=== PATIENT | female | born 1990 | race Caucasian/White ===

== ENCOUNTER 2021-02-27 20:53 | Inpatient (IN) ==
[2021-02-27] MEDS ORDERED: MEPERIDINE 50 MG/1 ML VIAL IV PRN (21:05)
[2021-02-27] MEDS ORDERED: ONDANSETRON 4 MG/2 ML VIAL IV PRN (21:05)
[2021-02-27] MEDS ORDERED: BUTORPHANOL 2 MG/ML VIAL IV PRN (21:05)
[2021-02-27 21:38] LABS: Basophils % 0.4 % (0.0-0.8); Eosinophils % 0.5 % (0.00-10.9); Hematocrit 35.9 VOL% (35.7-47.0); Hemoglobin 12.3 GM/DL (12.0-16.0); Immature Granulocytes % 0.8 %; Immature Granulocytes Absolute 0.07 #; Lymphocytes # 2.1 10*3/uL (1.4-4.0); Lymphocytes % 24.8 % (21.3-54.2); Mean Corpuscular HGB Conc 34.3 GM/DL (32-36); Mean Corpuscular Volume 91.6 FL (87-102); Monocytes % 7.7 % (1.7-12.7); Neutrophils % 65.8 % (38.7-73.9); Platelet Count 165 T/CUMM (130-400); Red Blood Count 3.92 MC/CUMM (3.8-5.5); Red Cell Distribution Width 13.1 % (9.3-17.3); White Blood Count 8.3 T/CUMM (4-12)
[2021-02-27 22:00] LABS: Alanine Aminotransferase 43 U/L (13-56); Albumin 2.8 G/DL (3.4-5.0); Alkaline Phosphatase 182 U/L (45-117); Aspartate Amino Transferase 32 U/L (0-37); Bilirubin,Total < 0.39 MG/DL (0.20-1.00); Blood Urea Nitrogen 10 MG/DL (7-18); Calcium 8.6 MG/DL (8.5-10.1); Carbon Dioxide 20 MMOL/L (21-32); Estimated Glom Filtration Rate 134 ML/MIN; Glucose 91 MG/DL (74-106); Osmolality,Calculated 271.8 MOS/KG (273-304); Potassium 3.3 MMOL/L (3.5-5.1); Sodium 137 MMOL/L (136-145); Total Protein 6.2 G/DL (6.4-8.2)
[2021-02-27] MEDS: ALUMINUM/MAGNES/SIMETH MAX STR 30 ML UDCUP PO PRN (22:54)
[2021-02-28] MEDS: LACTATED RINGERS 1,000 ML IV SCH ×4 (04:43→10:14)
[2021-02-28] MEDS ORDERED: AMPICILLIN INJ 2,000 MG in SODIUM CHLORIDE 0.9% 100 ML IV SCH (06:00)
[2021-02-28] MEDS ORDERED: NALOXONE 0.4 MG/ML VIAL IV PRN (07:15)
[2021-02-28] MEDS ORDERED: CITRIC ACID/SODIUM CITRATE 30 ML UDCUP PO ONE (07:15)
[2021-02-28] MEDS ORDERED: LACTATED RINGERS 1,000 ML IV ONE (07:15)
[2021-02-28] MEDS ORDERED: diphenhydrAMINE 50 MG/1 ML VIAL IV PRN ×2 (07:15)
[2021-02-28] MEDS ORDERED: ePHEDrine 50 MG/ML VIAL IV PRN (07:15)
[2021-02-28] MEDS ORDERED: FAMOTIDINE 20 MG/2 ML VIAL IV ONE (07:15)
[2021-02-28] MEDS ORDERED: OXYTOCIN/LR 20 UNIT/1,000 ML BAG IV SCH (07:30)
[2021-02-28] MEDS ORDERED: LACTATED RINGERS 1,000 ML IV SCH (07:30)
[2021-02-28] MEDS ORDERED: fentaNYL 2 MCG/ROPIV 0.2% EPID 100 ML EPIDURAL SCH (07:30)
[2021-02-28] MEDS ORDERED: miSOPROStoL 200 MCG TABLET ONE (11:27)
[2021-02-28] MEDS ORDERED: TRANEXAMIC ACID 1,000 MG/10 ML VIAL ONE (11:27)
[2021-02-28] MEDS ORDERED: METHYLERGONOVINE 0.2 MG/1 ML AMP ONE (11:28)
[2021-02-28] MEDS ORDERED: SODIUM CHLORIDE 0.9% 0 ML IV ONE (11:28)
[2021-02-28] MEDS ORDERED: CARBOPROST TROMETHAMINE 250 MCG/ML AMP IM ONE (11:28)
[2021-02-28 11:31] LABS: Bilirubin,Urine Negative (Negative); Blood, Urine Negative (Negative); Glucose,Urine (UA) Negative (Negative); Ketones,Urine 80 mg/dL (Negative); Mucus,Urine Few /LPF (Occasional); Nitrite,Urine Negative (Negative); Protein,Urine Negative; RBC,Urine 1 /HPF (0-4); Squamous Epithelial Cell,Urine Occasional /HPF (0-10); Urine Appearance CLEAR (Clear); Urine Color Yellow (Yellow); Urine Specific Gravity 1.019 (1.001-1.035); Urine Urobilinogen < 2.0 EU/DL (<2.0)
[2021-02-28 12:21] LABS: Cord Arterial Blood HCO3 20.1 MMOL/L
[2021-02-28 12:22] LABS: Cord Venous Blood HCO3 20.6 MMOL/L; Cord Venous Blood PCO2 36.7 MMHG; Cord Venous Blood PO2 26.9 MMHG
[2021-02-28] MEDS ORDERED: ONDANSETRON 4 MG/2 ML VIAL IV PRN (16:09)
[2021-02-28] MEDS ORDERED: oxyCODONE/ACETAMINOPHEN 5-325 MG TABLET PO PRN (16:09)
[2021-02-28] MEDS ORDERED: OXYTOCIN/LR 20 UNIT/1,000 ML BAG IV ONE (16:09)
[2021-02-28] MEDS ORDERED: WITCH HAZEL PADS 100/JAR TOP PRN (16:09)
[2021-02-28] MEDS ORDERED: LANOLIN 50% CREAM 0.3 OZ TUBE TOP PRN (16:09)
[2021-02-28] MEDS ORDERED: RHO(D) IMMUNE GLOBULIN 300 MCG SYRINGE IM ONE (16:09)
[2021-02-28] MEDS ORDERED: DIPH/TET/ACEL PERT BOOSTER VACCINE 0.5 ML VIAL IM ONE (16:09)
[2021-02-28] MEDS ORDERED: HYDROCORTISONE 2.5% RECTAL CREAM 30 GM TUBE TOP PRN (16:09)
[2021-02-28] MEDS ORDERED: MEASLES/MUMPS/RUBELLA VACCINE 0.5 ML VIAL SUBCUT ONE (16:09)
[2021-02-28] MEDS ORDERED: ACETAMINOPHEN 325 MG TABLET PO PRN (16:09)
[2021-02-28] MEDS ORDERED: BENZOCAINE 20%/MENTHOL 0.5% SPRAY 56 GM CAN TOP PRN (16:09)
[2021-02-28] MEDS ORDERED: BISACODYL 10 MG SUPP RECTAL PRN (16:09)
[2021-02-28] MEDS: DOCUSATE SODIUM 100 MG CAPSULE PO SCH (21:23)
[2021-02-28] MEDS: IBUPROFEN 800 MG TABLET PO PRN (23:43)
[2021-03-01] MEDS: ALUMINUM/MAGNES/SIMETH MAX STR 30 ML UDCUP PO PRN ×2 (00:08→23:41)
[2021-03-01] MEDS: oxyCODONE/ACETAMINOPHEN 5-325 MG TABLET PO PRN ×3 (00:11→23:44)
[2021-03-01 04:52] LABS: Basophils % 0.3 % (0.0-0.8); Eosinophils % 0.2 % (0.00-10.9); Hematocrit 35.1 VOL% (35.7-47.0); Hemoglobin 11.7 GM/DL (12.0-16.0); Immature Granulocytes % 0.7 %; Immature Granulocytes Absolute 0.06 #; Lymphocytes # 1.7 10*3/uL (1.4-4.0); Lymphocytes % 19.7 % (21.3-54.2); Mean Corpuscular HGB Conc 33.3 GM/DL (32-36); Mean Corpuscular Volume 93.1 FL (87-102); Mean Platelet Volume 10.4 FL (9.6-12.0); Monocytes % 5.3 % (1.7-12.7); Neutrophils % 73.8 % (38.7-73.9); Platelet Count 148 T/CUMM (130-400); Red Blood Count 3.77 MC/CUMM (3.8-5.5); Red Cell Distribution Width 13.4 % (9.3-17.3); White Blood Count 8.6 T/CUMM (4-12)
[2021-03-01] MEDS: DOCUSATE SODIUM 100 MG CAPSULE PO SCH ×3 (07:50→21:58)
[2021-03-01] MEDS: IBUPROFEN 800 MG TABLET PO PRN (07:50)
[2021-03-01] MEDS ORDERED: RHO(D) IMMUNE GLOBULIN 300 MCG SYRINGE IM ONE (13:19)
[2021-03-02] MEDS: IBUPROFEN 800 MG TABLET PO PRN (03:22)
[2021-03-02] MEDS: DOCUSATE SODIUM 100 MG CAPSULE PO SCH (07:59)
[2021-03-02 08:14] VITALS: BP 129/85
== END 2021-03-02 11:25 | disposition home or self-care (01) | DRG 807 ==
LOC: N.LDOUT 20:53 → N.LD 20:56 → N.OB 02-28 16:08
PROVIDERS: ADMIT Specialist; ATTEND Specialist